=== PATIENT | male | born 1975 | race Caucasian/White ===

== ENCOUNTER 2017-02-17 23:43 | Emergency (ER) | payer BC ==
[2017-02-18 00:02] VITALS: BP 143/81
--- NOTE | 2017-02-18 00:05 | EDM.PDOC ---
ED HPI GENERAL MEDICAL PROBLEM - General Chief Complaint: Bite:Animal, Insect Stated Complaint: BUG BITE Time Seen by Provider: 02/18/17 00:05 Source of Information: Reports: Patient, RN Notes Reviewed History Limitations: Reports: No Limitations - History of Present Illness INITIAL COMMENTS - FREE TEXT/NARRATIVE: Here with his who drove him here, 45 minutes Chief complaint Facial swelling, feeling of lump in throat History of present illness 41-year-old male was doing insect that bit into his forehead about 4 PM, 8 hours ago, after you: The sleep outside. Since then he's had increased swelling in the face as well as some itchiness, no pain. He then started getting the feeling of a lump in his throat. Has reacted badly to insect bites previously the swelling is worse than usual No recent fever or illness or infection No nausea or vomiting No weakness or collapse. Did take Benadryl 3 tablets at home prior to arrival Face Pain Score (Numeric/FACES): 3 - Related Data Allergies Allergy/AdvReac Type Severity Reaction Status Date / Time No Known Allergies Allergy Verified 02/17/17 23:57 Home Meds: Home Meds Prednisone [IJD: Prednisone] 20 mg PO BID #30 tab 02/18/17 [Rx] Past Medical History - Past Health History Medical/Surgical History: Denies Medical/Surgical History HEENT History: Reports: Impaired Vision - Infectious Disease History Infectious Disease History: Reports: Chicken Pox Social & Family History - Tobacco Use Smoking Status *Q: Never Smoker Second Hand Smoke Exposure: No - Caffeine Use Caffeine Use: Reports: Coffee, Energy Drinks, Soda, Tea - Alcohol Use Days Per Week of Alcohol Use: 2 Number of Drinks Per Day: 3 Total Drinks Per Week: 6 - Recreational Drug Use Recreational Drug Use: No ED ROS GENERAL - Review of Systems Review Of Systems: See Below Constitutional: Reports: No Symptoms HEENT: Reports: Other (Facial swelling involving his eyelids and cheeks). Denies: Eye Discharge, Eye Pain, Rhinitis, Throat Pain Respiratory: Reports: Other (He feels a lump in his throat). Denies: Shortness of Breath, Wheezing Cardiovascular: Reports: No Symptoms. Denies: Chest Pain, Dyspnea on Exertion Endocrine: Reports: No Symptoms GI/Abdominal: Reports: No Symptoms Musculoskeletal: Reports: No Symptoms Skin: Reports: Other (Some sunburn to his face and upper extremities) Neurological: Reports: No Symptoms Psychiatric: Reports: No Symptoms Hematologic/Lymphatic: Reports: No Symptoms Immunologic: Reports: Other (Insect bite reaction) ED EXAM, ANIMAL BITE - Physical Exam Exam: See Below Exam Limited By: No Limitations General Appearance: Alert, No Apparent Distress, Other (Vital signs normal apart from mild elevation of blood pressureNo difficulty speaking or breathing) Eye Exam: Bilateral Eye: Normal Inspection, Periorbital Changes (Edema upper and lower lids as well as the forehead) Ears: Normal External Exam, Normal Canal, Hearing Grossly Normal, Normal TMs Nose: Normal Inspection, Normal Mucosa Throat/Mouth: Normal Inspection, Normal Lips, Normal Teeth, Normal Gums, Normal Oropharynx, Normal Voice, No Airway Compromise Head: Atraumatic Neck: Normal Inspection, Supple. No: Lymphadenopathy (R), Lymphadenopathy (L) Respiratory/Chest: No Respiratory Distress, Lungs Clear, Normal Breath Sounds, No Accessory Muscle Use Cardiovascular: Normal Peripheral Pulses, Regular Rate, Rhythm Extremities: Normal Inspection, Non-Tender, No Pedal Edema Neurological: Alert, Oriented, No Motor/Sensory Deficits Skin Exam: Warm/Dry, Other (Mild sun burn) Lymphadenopathy: Bilateral: No Adenopathy Course - Vital Signs Last Recorded V/S: Last Vital Signs Temp 36.5 C 02/18/17 00:03 Pulse 87 02/18/17 00:03 Resp 16 02/18/17 00:03 BP 143/81 H 02/18/17 00:03 Pulse Ox 96 02/18/17 00:03 - Re-Assessments/Exams Free Text/Narrative Re-Assessment/Exam: 02/18/17 00:22 5-year-old male with known sensitivity to insect bites, sustained some type of insect bite to his forehead about 8 hours ago. Swelling is worsened but no evidence of shock respiratory compromise or hypotension. Assessment Insect bite with local reaction Continue antihistamine, add prednisone 20 mg by mouth twice a day for 3 days Get rechecked if symptoms worsening See discharge instructions below Departure - Departure Time of Disposition: 00:15 Disposition: Admitted As Inpatient 68 Condition: good Clinical Impression: Insect bite of face with local reaction Qualifiers: Encounter type: initial encounter Qualified Code(s): S00.86XA - Insect bite ( nonvenomous) of other part of head, initial encounter - Discharge Information Prescriptions: Prednisone [IJD: Prednisone] 20 mg PO BID #30 tab Instructions: Insect Bite, [id number] Referrals: PCP,None [Primary Care Provider] - Forms: ED Department Discharge Additional Instructions: In addition to using prednisone for 3 days, continue using an antihistamine such as diphenhydramine/Benadryl, Claritin/loratadine or Zyrtec/Reactin/ cetirizine. Get rechecked if you develop high fever, wheezing, shortness of breath, inability to speak or swallow, these can be signs of a more serious reaction which is quite rare
== END 2017-02-18 00:20 | disposition critical access hospital (66) ==
LOC: JP.ED 23:43
DX: S00.86XA Insect bite (nonvenomous) of other part of head, initial encounter (principal); H54.7 Unspecified visual loss; W57.XXXA Bitten or stung by nonvenomous insect and other nonvenomous arthropods, initial encounter
CPT/HCPCS: 99284